=== PATIENT | female | born 1960 | race Caucasian/White ===

== ENCOUNTER 2023-10-07 07:28 | Outpatient (AMB) | payer OTHER, SELFPAY ==
--- NOTE | 2023-10-07 07:42 | A.OFFPC_ITS ---
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 Intake Note: Pt is here today as a New patient to est care/PE Allergies acetaminophen [From Percocet] Adverse Reaction (Verified 10/07/23 07:47) Vomiting oxycodone [From Percocet] Adverse Reaction (Verified 10/07/23 07:47) Vomiting Medication List - Last Reconciled 10/07/23 by Jacquie Diggs MD antiarthritic combination no.2 (glucosamine-chondroitin) mg PO naproxen sodium (Aleve) 220 mg PO BID PRN Tobacco use date assessed: 10/07/23 Dental Screening Did you have a dental visit in the last 12 months?: No Was dental information given to patient?: 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 She had not seen a doctor for over 5 years. Patient complains of chronic left knee pain DUE TO ADVANCED OSTEOARTHRITIS and is established with [facility]. 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 [id number] - PHQ-9 Billing: Patient declined-do not bill Source: Developed by Drs. Clifton Hodge, Alla Gillespie, Anthony Arizmendi and colleagues, with an educational oliver from [employer]. Thrive Questionnaire Date Thrive assessed: 10/07/23 I am a: Patient What is your living situation today?: I have a steady place to live Within the past 12 months, did the food you bought not last and you didn't have the money to get more?: Never true Within the past 12 months, did you worry whether your food would run out before you got money to buy more?: Never true Do you have trouble paying for medicines?: No Do you have trouble getting transportation to medical appointments?: No Do you have trouble paying your heating and electricity bill?: No Do you have trouble taking care of your child, family member or friend?: No Do you have trouble with day-to-day activities such as bathing, preparing meals, shopping, managing finances, etc.?: No Are you currently unemployed and looking for a job?: No Are you interested in more education?: No THRIVE Score: 0 AUDIT C Alcohol Use Questionnaire (AUDIT-C) 1. How often do you have a drink containing alcohol?: Never Total Score: 0 ANGEL-7 AMB Questionnaire ANGEL-7 Date ANGEL - 7 assessed: 10/07/23 Source: Developed by Drs. Clifton Hodge, Alla Gillespie, Anthony Arizmendi and colleagues, with an educational oliver from [employer]. ANGEL-7 Assessment Billing ANGEL-7 Assessment Tool: pt declined-do not bill Review of Systems Const All systems reviewed & are unremarkable except as noted in HPI and below Reports no additional complaints Eyes Reports no additional complaints ENT Reports no additional complaints Card Reports no additional complaints Resp Reports no additional complaints GI Reports no additional complaints Reports no additional complaints Musc Reports no additional complaints Neuro Reports no additional complaints Physical exam (Primary Care) Vital Signs: Last Vital Signs Pulse 98 10/07/23 07:46 BP 138/100 H 10/07/23 07:46 Pulse Ox 95 10/07/23 07:46 Oxygen Delivery Method Room Air 10/07/23 07:46 BMI result Body Mass Index 39.3 Tobacco/Smoking Status: Tobacco use Status Tobacco use date assessed 10/07/23 10/07/23 07:52 Patient Tobacco Use Status Never used Tobacco 10/07/23 08:14 e-Cigarette/Vaping Use Never Used 10/07/23 08:14 Thrive Assessment: Date of Thrive Assessment Date Thrive assessed 10/07/23 10/07/23 07:54 Const General: no acute distress HENMT Other: There is asymmetry of the face with undeveloped left side of the face, and deformities of both external ears Mouth: Normal oral and palatal mucosa present Neck Neck: Yes supple Thyroid: diffusely enlarged Resp Effort & Inspection: normal respiratory effort Auscultation: clear to auscultation bilaterally Cardio Rhythm: regular rhythm Heart sounds: S1 normal heart sound present and S2 normal heart sound present GI Inspection: Yes normal to inspection Palpation (GI): Soft to palpation Percussion: Yes normal to percussion Auscultation: normal bowel sounds Extrem Other: Left knee decreased range of motion medial aspect tenderness, no joint swelling General: Yes no clubbing, cyanosis or edema Assessment and Plan Assessment & Plan (1) Knee pain, left: Code(s): M25.562 - Pain in left knee Plan: Patient will follow-up with established orthopedic at [facility] (2) Annual physical exam: Code(s): Z00.00 - Encounter for general adult medical examination without abnormal findings Plan: Well-balanced diet regular physical activity discussed with the patient. 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, face and jaw (6) Thyromegaly: Comment: History of biopsy of thyroid nodule Code(s): E01.0 - Iodine-deficiency related diffuse (endemic) goiter Plan: Obtain thyroid ultrasound (7) Hypertension: Code(s): I10 - Essential (primary) hypertension Plan: Start 5 mg of olmesartan, low-sodium diet increase physical activity discussed with the patient follow-up in 1 month Orders: Orders Lipid Panel Today M25.562 - Pain in left knee, Z00.00 - Encounter for general adult medical examination without abnormal findings Vitamin D 25-OH (D2 and D3) Today M25.562 - Pain in left knee, Z00.00 - Encounter for general adult medical examination without abnormal findings UA w Microscopic Today M25.562 - Pain in left knee, Z00.00 - Encounter for general adult medical examination without abnormal findings US thyroid Today E01.0 - Iodine-deficiency related diffuse (endemic) goiter MM screening mammo BI Today Z12.31 - Encounter for screening mammogram for malignant neoplasm of breast Comprehensive [place]. Panel Fast Today M25.562 - Pain in left knee, Z00.00 - Encounter for general adult medical examination without abnormal findings Complete Blood Count Auto Diff Today M25.562 - Pain in left knee, Z00.00 - Encounter for general adult medical examination without abnormal findings TSH reflex Free T4 Today E01.0 - Iodine-deficiency related diffuse (endemic) goiter Referrals Orthopedics Referral M25.562 - Pain in left knee Gastroenterology Referral Z00.00 - Encounter for general adult medical examination without abnormal findings Medications: New olmesartan 5 mg PO DAILY 30 tabs 2RF Coding Level of Care Code New Pt Prev Care 40-64y(57819) Diagnoses Knee pain, left M25.562 Annual physical exam Z00.00 Normal pelvic exam Z01.419 Overweight E66.3 Craniofacial microsomia Q67.4 Thyromegaly E01.0 Hypertension I10
[2023-10-07 07:46] VITALS: BP 138/100; PULSE 98; O2SAT 95; BMI 39.3
== END 2023-10-07 08:50 | disposition home or self-care (01) ==
PROVIDERS: PCP Internal Medicine; Visit Provider Internal Medicine
DX: M25.562 Pain in left knee (principal); Z00.00 Encounter for general adult medical examination without abnormal findings; Z01.419 Encounter for gynecological examination (general) (routine) without abnormal findings; E66.3 Overweight; Q67.4 Other congenital deformities of skull, face and jaw; E01.0 Iodine-deficiency related diffuse (endemic) goiter; I10 Essential (primary) hypertension
CPT/HCPCS: 99386

== ENCOUNTER 2023-10-15 10:45 | Outpatient (REF) | payer OTHER, SELFPAY ==
[2023-10-15 13:53] LABS: MANUAL DIFF FLAG NO
[2023-10-15 13:59] LABS: Basophils Percent Auto 0.5 % (0-2); Eosinophils Absolute Auto 0.2 X10*3/uL (0.0-0.4); Eosinophils Percent Auto 2.4 % (0-4); Hematocrit 43.7 % (37.0-47.0); Hemoglobin 14.4 g/dl (12.0-16.0); Imm Gran Abs Auto 0.02 X10*3/uL (0.00-0.03); Imm Gran Pct Auto 0.3 % (0.0-0.4); Lymphocytes Absolute Auto 1.7 X10*3/uL (1.2-4.9); Lymphocytes Percent Auto 27.1 % (20-40); Mean Corpuscular Hemoglobin 27.7 pg (27.0-33.0); Mean Corpuscular Volume 84.2 fL (80.0-98.0); Mean Platelet Volume 9.8 fL (9.4-12.3); Monocytes Absolute Auto 0.3 X10*3/uL (0.1-1.2); Monocytes Percent Auto 5.3 % (2-11); Neutrophils Percent Auto 64.4 % (45-73); Platelet Count 263 X10*3/uL (160-400); Red Blood Count 5.19 X10*6/uL (4.20-5.50); Red Cell Distribution Width 13.2 % (11.0-16.0); White Blood Count 6.3 X10*3/uL (4.8-10.8)
[2023-10-15 14:00] LABS: Appearance Urine Clear; Color Urine Yellow; Glucose Urine UA Negative (Negative); Leukocyte Esterase Urine Negative (Negative); Nitrite Urine Negative (Negative); PH 5.5 (5.0-9.0); UMIC TRIGGER UA YES; Urine Blood Moderate (2+) (Negative); Urine Ketones Negative (Negative); Urine Protein Negative (Neg-Trace)
[2023-10-15 14:11] LABS: Bacteria Urine None Seen (None Seen); Hyaline Casts Urine 0-2 /LPF (0-2); WBC Urine 0-5 /HPF (0-5)
[2023-10-15 14:29] LABS: Alanine Aminotransferase 14 U/L (0-31); Albumin Level 4.1 g/dL (3.5-5.0); Alkaline Phosphatase 127 U/L (39-117); Anion Gap 10 (12-20); Aspartate Amino Transferase 17 U/L (5-31); Bilirubin Total 0.6 mg/dL (0.0-1.0); Blood Urea Nitrogen 12 mg/dL (9-16); Calcium 9.6 mg/dL (8.4-10.2); Carbon Dioxide 25 mmol/L (22-29); Chloride 108 mmol/L (96-108); Cholesterol 216 mg/dL (<200); Estimated Glomerular Filt Rate > 60; Glucose Fasting 99 mg/dL (60-99); HDL Cholesterol 44 mg/dL (>40); LDL Cholesterol Calculated 137 mg/dL (<100); Sodium 139 mmol/L (135-145); Total Protein 7.5 g/dL (6.5-8.0); Triglycerides 177 mg/dL (<150)
[2023-10-15 14:33] LABS: TSH reflex Free T4 1.57 uIU/mL (0.32-4.0)
[2023-10-20 13:54] LABS: Vitamin D 25-OH, D2 <4 ng/mL; Vitamin D 25-OH, D3 22 ng/mL; Vitamin D 25-OH, Total 22 ng/mL (30-100)
== END 2023-10-15 10:46 | disposition home or self-care (01) ==
LOC: HO.HMGCLDS 10:45
PROVIDERS: PCP Internal Medicine; Visit Provider Internal Medicine
DX: Z00.00 Encounter for general adult medical examination without abnormal findings (principal); E01.0 Iodine-deficiency related diffuse (endemic) goiter; M25.562 Pain in left knee
CPT/HCPCS: 36415; 80053; 80061; 81001; 82306; 84443; 85025

== ENCOUNTER 2023-10-18 15:39 | Outpatient (REF) | payer OTHER, SELFPAY ==
--- NOTE | ~2023-10-18 | MM_ITS ---
EXAMINATION: MM SCREENING DIGITAL BREAST TOMOSYNTHESIS, BILATERAL CLINICAL INFORMATION: Screening. Asymptomatic. COMPARISON: Mammography: This is a baseline mammogram. TECHNIQUE: Digital breast tomosynthesis is performed in both the craniocaudal and mediolateral oblique views along with computer-aided detection (CAD). Synthesized 2D images are generated from the tomosynthesis. FINDINGS: The breasts are almost entirely fatty (ACR BI-RADS breast composition Category a). There are no significant masses, abnormal calcifications, or other abnormalities. There is a single, coarse benign calcification in the posterior nipple line of the right breast at an anterior depth. MM/MM tomosynthesis screening BI IMPRESSION: No mammographic evidence of malignancy. ASSESSMENT: BI-RADS BI-RADS 2 - Benign Findings RECOMMENDATION: Routine annual mammography screening. 1 year F/U This examination should not preclude the clinical evaluation of a suspicious palpable abnormality. This patient's information was entered into a reminder system with a target due date for their next mammogram.
== END 2023-10-18 15:40 | disposition home or self-care (01) ==
LOC: HO.MAMMO 15:39
PROVIDERS: PCP Internal Medicine; Visit Provider Internal Medicine
DX: Z12.31 Encounter for screening mammogram for malignant neoplasm of breast (principal)
CPT/HCPCS: 77063; 77067

== ENCOUNTER → 2023-10-18 15:45 | Outpatient (BNV) | payer OTHER, SELFPAY | PROVIDERS: PCP Internal Medicine; Visit Provider Radiology Diagnostic Radiology | DX: Z12.31 Encounter for screening mammogram for malignant neoplasm of breast (principal) | CPT/HCPCS: 77063; 77067 ==

== ENCOUNTER 2023-11-17 13:38 | Outpatient (AMB) | payer OTHER, SELFPAY ==
[2023-11-17 13:39] VITALS: BP 136/80; PULSE 85; O2SAT 95; BMI 39.2
--- NOTE | 2023-11-17 13:39 | MHC.PC.OV ---
Vital Signs 11/17/23 13:39 Height 5 ft 7 in Weight 250 lb BMI 39.2 BP 136/80 Blood Pressure Location Lt brachial Position Sitting Pulse 85 Pulse Source Pulse Oximeter Pulse Oximetry (%) 95 Oxygen Delivery Method Room Air Intake Visit Reasons: 1M F/U Intake Note: Pt is here today for 1 month follow up visit. Allergies acetaminophen [From Percocet] Adverse Reaction (Verified 11/17/23 13:43) Vomiting oxycodone [From Percocet] Adverse Reaction (Verified 11/17/23 13:43) Vomiting Medication List - Last Reconciled 11/17/23 by Jacquie Diggs MD antiarthritic combination no.2 (glucosamine-chondroitin) mg PO naproxen sodium (Aleve) 220 mg PO BID PRN olmesartan 5 mg PO DAILY Tobacco use date assessed: 10/07/23 HPI 1M F/U HPI Details Patient presents for the follow-up on hypertension. She has been taking olmesartan and tolerating well. 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 Clifton Hodge, Alla Gillespie, Anthony Arizmendi and colleagues, with an educational oliver from [employer]. Review of Systems Const All systems reviewed & are unremarkable except as noted in HPI and below ENT Reports no additional complaints Card Reports no additional complaints Resp Reports no additional complaints GI Reports no additional complaints Physical exam (Primary Care) Vital Signs: Last Vital Signs Pulse 85 11/17/23 13:39 BP 136/80 11/17/23 13:39 Pulse Ox 95 11/17/23 13:39 Oxygen Delivery Method Room Air 11/17/23 13:39 BMI result Body Mass Index 39.2 Tobacco/Smoking Status: Tobacco use Status Tobacco use date assessed 10/07/23 11/17/23 13:44 Patient Tobacco Use Status Never used Tobacco 11/17/23 13:44 e-Cigarette/Vaping Use Never Used 11/17/23 13:44 Thrive Assessment: Date of Thrive Assessment Date Thrive assessed 10/07/23 11/17/23 13:44 Const General: no acute distress HENMT Ears: hearing grossly normal bilaterally Neck Neck: Yes supple Resp Effort & Inspection: normal respiratory effort Auscultation: clear to auscultation bilaterally Cardio Rhythm: regular rhythm Heart sounds: S1 normal heart sound present and S2 normal heart sound present Assessment and Plan Assessment & Plan (1) Hypertension: Code(s): I10 - Essential (primary) hypertension Plan: Continue olmesartan low-sodium diet. Return in 4 months (2) Knee pain, left: Comment: Advanced osteoarthritis will have a knee arthroplasty by [facility] Code(s): M25.562 - Pain in left knee Plan: Follow-up with orthopedic surgeon Medications: Refilled olmesartan 5 mg PO DAILY 90 tabs 2RF Coding Level of Care Code Est Pt Level 3 (87519) Diagnoses Hypertension I10 Knee pain, left M25.562
== END 2023-11-17 14:28 | disposition home or self-care (01) ==
PROVIDERS: PCP Internal Medicine; Visit Provider Internal Medicine
DX: I10 Essential (primary) hypertension (principal); M25.562 Pain in left knee
CPT/HCPCS: 99213

== ENCOUNTER 2023-11-23 15:25 | Outpatient (REF) | payer OTHER, SELFPAY ==
--- NOTE | ~2023-11-23 | US_ITS ---
EXAMINATION: US THYROID CLINICAL INFORMATION: Iodine deficiency related diffuse (endemic) goiter. COMPARISON: None available. TECHNIQUE: Linear transducer grayscale and color Doppler examination with attention to the region of the thyroid. FINDINGS: SIZE: Measurements of the thyroid lobes and nodules are given in sagittal, anteroposterior and transverse dimensions respectively. Right Thyroid Lobe: 6.7 x 3.3 x 2.6 cm, volume 30.2 mL. Parenchyma: The gland echotexture is heterogeneous. Thyroid vascularity is increased. Left Thyroid Lobe: 5.3 x 2.6 x 2.0 cm, volume 14.4 mL. Parenchyma: The gland echotexture is heterogeneous. Thyroid vascularity is normal. Isthmus: 0.76 cm in maximum AP dimension. Estimated total number of nodules greater than or equal to 1 cm: 4. 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 Location: Right lower pole. Size: 3.3 x 3.0 x 3.5 cm, volume 17.8 mL. Nodule characteristics: Composition: Solid/almost completely solid (2). Echogenicity: Hypoechoic (2). Shape: Not taller than wide (0). Margins: Smooth (0). Echogenic Foci: Punctate echogenic foci (3). ACR TI-RADS total points: 7 ACR TI-RADS category: 5 2. Location: Right mid pole. Size: 1.6 x 2.3 x 2.4 cm, volume 4.5 mL. Nodule characteristics: Composition: Solid (2). Echogenicity: Hyperechoic (1). Shape: Not taller than wide (0). Margins: Smooth (0). Echogenic Foci: Macrocalcifications (1). ACR TI-RADS total points: 4 ACR TI-RADS category: 4 3. Location: Right mid pole. Size: 2.0 x 1.5 x 1.7 cm, volume 2.7 mL. Nodule characteristics: Composition: Solid/almost completely solid (2). Echogenicity: Very hypoechoic (3). Shape: Not taller than wide (0). Margins: Smooth (0). Echogenic Foci: Punctate echogenic foci (3). ACR TI-RADS total points: 8 ACR TI-RADS category: 5 4. Location: Left lower pole. Size: 1.5 x 1.0 x 1.3 cm, volume 1.1 mL. Nodule characteristics: Composition: Solid (2). Echogenicity: Very hypoechoic (3). Shape: Not taller than wide (0). Margins: Smooth (0). Echogenic Foci: Punctate echogenic foci (3). ACR TI-RADS total points: 8 ACR TI-RADS category: 5 NODES: No lymphadenopathy is seen in the tissue surrounding the thyroid gland. US/US thyroid IMPRESSION: 3.5 cm right lower TR5, 2.4 cm right mid TR 4, 2.0 cm right mid TR 5, and 1.5 cm left lower TR5 thyroid nodules meet criteria for biopsy. Fine-needle aspiration of at least the 2 largest nodules is recommended. This study was presented Thursday December 07, 2023 for interpretation. PSA staff will provide results to referring provider at this time. ACR TI-RADS RECOMMENDATION REFERENCE: Ultrasound-guided fine-needle aspiration, followup ultrasound, no further follow up. * TR1 (0 point) and TR2 (2 points): No FNA or follow up. * TR3 (3 points): FNA if more than or equal to 2.5 cm in maximum dimension, followup ultrasound in 1, 3 and 5 years if 1.5 to 2.4 cm in maximum dimension. * TR4 (4-6 points): FNA if more than or equal to 1.5 cm in maximum dimension, followup ultrasound in 1, 2, 3 and 5 years if 1 to 1.4 cm in maximum dimension. * TR5 (more than or equal to 7 points): FNA if more than or equal to 1 cm in maximum dimension, followup ultrasound every year for 5 years if 0.5 to 0.9 cm in maximum dimension. * TR3, TR4 or TR5 nodules that are below the size threshold for followup receive no follow up.
== END 2023-11-23 15:26 | disposition home or self-care (01) ==
LOC: HO.HMGCX 15:25
PROVIDERS: PCP Internal Medicine; Visit Provider Internal Medicine
DX: E01.0 Iodine-deficiency related diffuse (endemic) goiter (principal)
CPT/HCPCS: 76536

== ENCOUNTER → 2024-10-23 15:45 | Outpatient (BNV) | payer OTHER, SELFPAY | PROVIDERS: Visit Provider Internal Medicine | DX: Z12.31 Encounter for screening mammogram for malignant neoplasm of breast (principal) | CPT/HCPCS: 77063; 77067 ==

== ENCOUNTER 2024-10-23 15:47 | Outpatient (REF) | payer OTHER, SELFPAY | END 2024-10-23 15:48 | disposition home or self-care (01) | LOC: HO.MAMMO 15:47 | PROVIDERS: Visit Provider Internal Medicine | DX: Z12.31 Encounter for screening mammogram for malignant neoplasm of breast (principal) | CPT/HCPCS: 77063; 77067 ==